=== PATIENT | female | born 1995 | race Caucasian/White ===

== ENCOUNTER 2016-07-31 21:29 | Emergency (ER) | payer OTHER ==
[~2016-07-31 21:29] MED LIST: CIPRO PO; MOTRIN600 M1 PO; NO MEDICATIONS; PHENERGAN25 M1 PO; TYLENOL #3 PO; VOLTAREN75 MG PO
== END 2016-07-31 21:55 | disposition home or self-care (01) ==
LOC: CFTX 21:29
DX: M76.51 Patellar tendinitis, right knee (principal); Z91.040 Latex allergy status; Z79.899 Other long term (current) drug therapy
CPT/HCPCS: 99282

== ENCOUNTER 2016-08-24 02:32 | Emergency (ER) | payer OTHER ==
--- NOTE | ~2016-08-24 | EKG ---
PATIENT: KELIN WAITE UNIT #: [id number] Ventricular Rate: 76 BPM Atrial Rate: 76 BPM P-R Interval: 148 ms QRS Duration: 94 ms Q-T Interval: 350 ms QTC Calculation(Bezet): 393 ms P [place]: 53 degrees Calculated R [place]: 44 degrees Calculated T [place]um[place]: 39 degrees Diagnosis Line: Normal sinus rhythm Diagnosis Line: Normal ECG Diagnosis Line: No previous ECGs available Diagnosis Line: Confirmed by ERNESTO HUSSEIN MD ([id number]) on 08/27/2016 Diagnosis Line: 10:42:46 PM INTERPRETING MD: KEENAN GAFFNEY
--- NOTE | ~2016-08-24 | CR63 ---
[facility] A Service of [facility] & [facility] RADIOLOGY TEXT RESULTS PATIENT: KELIN WAITE LOCATION: [facility] : 95 UNIT #: [id number] AGE: [address]: Sylvia Anderson APRN SEX: F ORDER DR: [id number] [facility] [address] [place], [place] [address] [id number] E MR#: [id number] Acc #: [id number] NAME: KELIN WAITE : 1995 SEX: F STUDY DATE/TIME: 08/24/2016 2:38 UNIT: [facility] ROOM: STUDY DESCRIPTION: CR Chest 2 View Attending Physician: Sylvia Anderson A.P.R.N. Ordering Physician: Sylvia Anderson A.P.R.N. Primary Care Physician: Primary Care Physician No MEDICAL IMAGING REPORT This report is preliminary unless electronic signature is present EXAM Chest x-ray 08/24/2016 HISTORY 20-year-old female in the ED complaining of 3-day history of chest pain/tightness. TECHNIQUE AP and lateral upright chest series. FINDINGS The examination is negative. Heart size and pulmonary vascularity are normal. The lungs are expanded and clear. No visible pulmonary infiltrate, pneumothorax or pleural effusion. IMPRESSION Negative chest. Dictated by... West Li M.D. THIS IS AN ELECTRONICALLY VERIFIED REPORT West Li M.D. at 08/28/2016 5:01 PM IKER/mehreen TD: 08/24/2016 08:21 JOB #: [id number] MEDICAL IMAGING REPORT Page 1 of 1 COPY
[2016-08-24 02:49] LABS: INFLUENZA A NEG (NEG); INFLUENZA B NEG (NEG)
[2016-08-24 02:50] LABS: URINE SOURCE CLEAN CATCH
[2016-08-24 02:53] LABS: URINE APPEARANCE TURBID; URINE BILIRUBIN NEG (NEG); URINE BLOOD NEG (NEG); URINE COLOR YELLOW; URINE GLUCOSE NEG (NEG); URINE KETONE NEG (NEG); URINE LEUKOCYTE ESTERASE TRACE (NEG); URINE NITRATE NEG (NEG); URINE PROTEIN NEG (NEG); URINE SPECIFIC GRAVITY 1.024 (1.003-1.035); URINE UROBILINOGEN 0.2 MG/DL (NEG)
[2016-08-24 02:56] LABS: CULTURE INDICATED? YES; U HYALINE CASTS AUWI 0-2 /[LPF]; URINE BACTERIA AUWI 2+ (NEGATIVE); URINE SQUAMOUS EPITHELIAL CELL OCC /[HPF]
== END 2016-08-24 03:40 | disposition home or self-care (01) ==
LOC: CED 02:32
PROVIDERS: Emergency Medicine; Nurse Practitioner
DX: J06.9 Acute upper respiratory infection, unspecified (principal); F17.210 Nicotine dependence, cigarettes, uncomplicated
CPT/HCPCS: 71020; 81003; 84703; 87086; 87651; 87804; 93005; 99283; J1885